=== PATIENT | male | born 1950 | race Caucasian/White ===

== ENCOUNTER 2017-03-02 15:01 | Outpatient (CLI) | payer OTHER ==
[2014-01-14 20:30] VITALS: BP 139/71
== END 2017-03-02 15:02 ==
LOC: CARD 15:01
PROVIDERS: ATTEND Internal Medicine Cardiovascular Disease
DX: R42 Dizziness and giddiness (principal); I25.10 Atherosclerotic heart disease of native coronary artery without angina pectoris; I10 Essential (primary) hypertension; E78.5 Hyperlipidemia, unspecified
CPT/HCPCS: 99213

== ENCOUNTER 2017-11-04 09:56 | Outpatient (CLI) | payer MEDICARE, OTHER ==
[2014-01-14 20:30] VITALS: BP 139/71
[2017-11-04 10:41] LABS: BASOPHILS % 0.6 (0.0-1.5); EOSINOPHILS % 3.3 % (0.0-6.8); MEAN CORPUSCULAR VOLUME 99.2 fl (80.0-100.0); MONOCYTES % 5.2 % (0.0-11.0); NEUTROPHILS # 7.7 # k/uL (1.4-7.7)
[2017-11-04 10:51] LABS: eGFR (African) 49; eGFR (Non-African) 40
== END 2017-11-04 10:10 ==
LOC: LAB 09:56
PROVIDERS: ATTEND Family Medicine
DX: R07.9 Chest pain, unspecified (principal); E78.5 Hyperlipidemia, unspecified; R25.2 Cramp and spasm; R73.9 Hyperglycemia, unspecified
CPT/HCPCS: 36415; 80053; 80061; 83036; 83735; 84484; 85025

== ENCOUNTER 2018-02-24 07:35 | Outpatient (CLI) | payer MEDICARE, OTHER ==
[2014-01-14 20:30] VITALS: BP 139/71
[2018-02-24 08:31] LABS: eGFR (African) > 60; eGFR (Non-African) 54
== END 2018-02-24 07:36 ==
LOC: LAB 07:35
PROVIDERS: ATTEND Family Medicine
DX: E11.65 Type 2 diabetes mellitus with hyperglycemia (principal)
CPT/HCPCS: 36415; 80053; 80061; 82043; 83036; 84550

== ENCOUNTER 2019-01-23 08:49 | Outpatient (CLI) | payer OTHER ==
[2014-01-14 20:30] VITALS: BP 139/71
[2019-01-23 09:45] LABS: eGFR (Non-African) 44
[2019-01-23 09:46] LABS: BASOPHILS % 0.6 % (0.0-1.5); NEUTROPHILS # 4.6 # k/uL (1.4-7.7)
[2019-01-23 09:50] LABS: APPEARANCE,URINE CLEAR (CLEAR); COLOR,URINE YELLOW (YELLOW); OCCULT BLOOD,URINE 2+ (NEGATIVE); PH URINE 5.5 (5.0 - 8.0); UROBILINOGEN URINE 0.2 Eu (0.2-1.0)
== END 2019-01-23 08:51 ==
LOC: LAB 08:49
PROVIDERS: ATTEND Internal Medicine Nephrology
DX: E11.9 Type 2 diabetes mellitus without complications (principal); I10 Essential (primary) hypertension; R80.9 Proteinuria, unspecified
CPT/HCPCS: 36415; 76770; 80053; 81002; 84100; 85025

== ENCOUNTER 2019-03-21 08:03 | Outpatient (CLI) | payer OTHER ==
[2014-01-14 20:30] VITALS: BP 139/71
[2019-03-21 08:38] LABS: BASOPHILS % 0.5 % (0.0-1.5); NEUTROPHILS # 5.2 # k/uL (1.4-7.7)
[2019-03-21 08:50] LABS: A1C 6.1 % (<5.7)
[2019-03-21 09:27] LABS: eGFR (Non-African) 49
[2019-03-21 09:28] LABS: HDL 31 mg/dL (>40)
== END 2019-03-21 08:05 ==
LOC: LAB 08:03
PROVIDERS: ATTEND Internal Medicine Cardiovascular Disease
DX: E11.9 Type 2 diabetes mellitus without complications (principal); I25.10 Atherosclerotic heart disease of native coronary artery without angina pectoris
CPT/HCPCS: 36415; 80053; 80061; 83036; 84153; 84443; 84550; 85025

== ENCOUNTER 2019-03-28 13:07 | Outpatient (CLI) | payer OTHER ==
[2014-01-14 20:30] VITALS: BP 139/71
== END 2019-03-28 13:35 ==
LOC: NEPHRO 13:07
PROVIDERS: ATTEND Internal Medicine Nephrology
DX: E11.22 Type 2 diabetes mellitus with diabetic chronic kidney disease (principal); I12.9 Hypertensive chronic kidney disease with stage 1 through stage 4 chronic kidney disease, or unspecified chronic kidney disease; N18.9 Chronic kidney disease, unspecified
CPT/HCPCS: 99214

== ENCOUNTER 2019-06-13 09:22 | Outpatient (CLI) | payer OTHER ==
[2014-01-14 20:30] VITALS: BP 139/71
[2019-06-13 09:57] LABS: BASOPHILS % 0.7 % (0.0-1.5); NEUTROPHILS # 5.7 # k/uL (1.4-7.7)
[2019-06-13 10:11] LABS: APPEARANCE,URINE CLEAR (CLEAR); COLOR,URINE YELLOW (YELLOW); OCCULT BLOOD,URINE 2+ (NEGATIVE); PH URINE 5.5 (5.0 - 8.0); UROBILINOGEN URINE 0.2 Eu (0.2-1.0)
[2019-06-13 10:41] LABS: eGFR (Non-African) 38
== END 2019-06-13 09:27 ==
LOC: LAB 09:22
PROVIDERS: ATTEND Internal Medicine Nephrology
DX: E11.21 Type 2 diabetes mellitus with diabetic nephropathy (principal); E11.22 Type 2 diabetes mellitus with diabetic chronic kidney disease; I12.9 Hypertensive chronic kidney disease with stage 1 through stage 4 chronic kidney disease, or unspecified chronic kidney disease; N18.3 Chronic kidney disease, stage 3 (moderate)
CPT/HCPCS: 36415; 80053; 81002; 83036; 84100; 84550; 85025

== ENCOUNTER 2019-06-20 14:07 | Outpatient (CLI) | payer OTHER ==
[2014-01-14 20:30] VITALS: BP 139/71
== END 2019-06-20 14:30 ==
LOC: NEPHRO 14:07
PROVIDERS: ATTEND Internal Medicine Nephrology
DX: E11.22 Type 2 diabetes mellitus with diabetic chronic kidney disease (principal); I12.9 Hypertensive chronic kidney disease with stage 1 through stage 4 chronic kidney disease, or unspecified chronic kidney disease; N18.9 Chronic kidney disease, unspecified; R80.9 Proteinuria, unspecified; D63.1 Anemia in chronic kidney disease; N17.9 Acute kidney failure, unspecified
CPT/HCPCS: 99213; 99214